=== PATIENT | male | born 1985 | race Caucasian/White ===

== ENCOUNTER 2022-10-30 07:37 | Outpatient (CLI) | payer BC, SELFPAY | END 2022-10-30 07:38 | disposition home or self-care (01) | LOC: ANHLAB 08:30 | PROVIDERS: Visit Provider Obstetrics & Gynecology Gynecology | DX: Z01.83 Encounter for blood typing (principal) | CPT/HCPCS: 36415; 86850; 86900; 86901 ==

== ENCOUNTER 2023-08-17 18:03 | Emergency (ER) | payer BC, SELFPAY ==
--- NOTE | ~2023-08-17 | US_ITS ---
EXAMINATION: US venous doppler UE RT DATE: 08/17/2023 20:15 INDICATION: LUE edema, redness . TECHNIQUE: Grayscale ultrasound images without and with compression and Doppler ultrasound images of the right upper extremity veins were obtained. COMPARISON: None. FINDINGS: The visualized portions of the right internal jugular vein, subclavian vein, axillary vein, brachial veins, basilic vein, cephalic vein, radial vein, and ulnar vein are patent. IMPRESSION: No deep venous thrombosis. Reviewed, dictated and finalized at location K. IMPRESSION: No deep venous thrombosis.
[2023-08-17 18:06] VITALS: BP 121/71; PULSE 87; RESP 18; TEMP 37.1; O2SAT 99
--- NOTE | 2023-08-17 18:44 | ED.SKABFB ---
HPI - Skin/Abscess/Foreign Bdy General Chief complaint: Skin/Abscess/Foreign Body Stated complaint: right arm cellulitis (sting?) Time Seen by Provider: 08/17/23 18:13 History of Present Illness HPI narrative: 37-year-old male presents to the emergency department for redness and pain to his right arm and redness throughout his body. Patient states a couple days ago he noticed what he thought was a bite rivas to the volar aspect of his right forearm. States the areas become red and painful. He went to urgent care today and was prescribed clindamycin. States he took 2 doses. He was advised to go to the emergency department if symptoms worsened or progressed which is why he came in today. States he later noticed more swelling and redness to his arm and also notice redness to his chest and abdomen, back and thighs. He is unsure when the redness to his torso started and thinks it may have been today or yesterday. He is unable to tell me if it was before or after starting clindamycin. He states the rash to his forearm is itchy and tender. States he felt feverish last night but denies known fever. Denies nausea or vomiting. No past medical history. Related Data Allergies Allergy/AdvReac Type Severity Reaction Status Date / Time No Known Allergies Allergy Verified 08/17/23 18:11 Review of Systems Review of Systems: CONSTITUTIONAL: see HPI EYES: Denies visual changes, redness, or discharge. ENT: Denies rhinorrhea, congestion, sore throat, or otalgia. CARDIOVASCULAR: Denies chest pain, palpitations, or edema. RESPIRATORY: Denies cough or dyspnea. GASTROINTESTINAL: Denies abdominal pain, nausea, vomiting, or diarrhea. GENITOURINARY: Denies dysuria or hematuria. SKIN: See HPI MUSCULOSKELETAL: Denies back pain, joint pain, or myalgia. NEUROLOGIC: Denies headache, numbness, or weakness. PSYCHIATRIC: Denies anxiety or depression. Exam Narrative: GENERAL: Well-appearing, well-nourished, and in no acute distress. HEAD: Normocephalic, atraumatic. EYES: PERRLA and EOMI. ENT: Nares clear, no rhinorrhea or epistaxis. Mucous membranes moist. NECK: Supple. CHEST: Clear to auscultation. No respiratory distress. HEART: Regular rate and rhythm. No murmur heard. Normal peripheral pulses. ABDOMEN: Soft, nontender, nondistended, normal active bowel sounds. EXTREMITIES: Normal range of motion. No edema. SKIN: RUE: 2cm area of purple ecchymosis to the volar aspect of the forearm with surrounding erythema, edema and warmth. Erythema and warmth travels proximally into the axilla. Chest, abdomen, back and anterior aspect of the thighs with diffuse warmth and erythema. There are patches of coalescing macules to the back. No crepitus, desquamation, or vesicles throughout. NEURO: No focal deficits. Alert and oriented x3 Course Vital Signs Vital signs: Vital Signs Temperature 98.8 F 08/17/23 18:06 Pulse Rate 87 08/17/23 18:06 Respiratory Rate 18 08/17/23 18:06 Blood Pressure 121/71 08/17/23 18:06 Pulse Oximetry 99 08/17/23 18:06 Oxygen Delivery Room Air 08/17/23 18:06 Temperature 98.8 F 08/17/23 18:06 Pulse Rate 66 08/17/23 20:00 Respiratory Rate 18 08/17/23 20:00 Blood Pressure 119/75 08/17/23 20:00 Pulse Oximetry 100 08/17/23 20:00 Oxygen Delivery Room Air 08/17/23 18:06 MDM - Skin/Abscess/Foreign Bdy MDM Narrative Medical decision making narrative: 37-year-old male presents to emergency department for concerns for bite to his right forearm a few days ago and now a red and warm rash throughout his body. Triage vital stable. Exam is significant for the above. Diffuse erythematous rash is concerning for possible drug eruption. Will treat as such and obtain basic labs and re-evaluate. CBC with leukocytosis of 12.5, no bandemia. This is consistent with patient's cellulitis to his right forearm from possible bite. His Tdap is up-to-date. Chemistries are largely unremarkable but hi
[2023-08-17] MEDS: methylPREDNISolone SOD SUCC 125 MG VIAL IV PUSH (18:56)
[2023-08-17] MEDS: diphenhydrAMINE HCl INJ 50 MG/ML VIAL 25 MG IV PUSH (18:57)
[2023-08-17] MEDS: FAMOTIDINE 20 MG/2 ML VIAL IV PUSH (18:57)
[2023-08-17 19:03] LABS: Basophils Percent Auto 0.2 % (0.2-1.2); Eosinophils Absolute Auto 0.4 K/mm3 (0-0.3); Eosinophils Percent Auto 3.5 % (0-4.4); Hematocrit 41.8 % (42.0-52.0); Hemoglobin 14.3 g/dL (14.0-18.0); Immature Granulocyte Absolute 0.04 K/mm3 (0.00-0.031); Immature Granulocyte Percent A 0.3 % (0-0.5); Lymphocytes Absolute Auto 0.69 K/mm3 (0.9-3.2); Lymphocytes Percent Auto 5.5 % (18.3-44.2); Mean Corpuscular HGB Conc 34.2 g/dl (32-36); Mean Corpuscular Hemoglobin 31.9 pg (26-34); Mean Corpuscular Volume 93.3 fl (80-100); Mean Platelet Volume 8.9 fl (7.4-10.4); Monocytes Absolute Auto 0.6 K/mm3 (0.1-0.6); Monocytes Percent Auto 4.6 % (2.6-8.5); Neutrophils Absolute Auto 10.7 K/mm3 (1.3-6.7); Neutrophils Percent Auto 85.9 % (45.5-73.1); Platelet Count Result 187 k/mm3 (150-375); Red Blood Count 4.48 M/mm3 (4.6-6.20); Red Cell Distribution Width 12.8 % (11.5-14.5); White Blood Count 12.5 K/mm3 (4.5-10.0)
[2023-08-17 19:20] LABS: Alanine Aminotransferase 19 U/L (6-50); Albumin Level 4.3 g/dL (3.5-5.1); Alkaline Phosphatase 67 U/L (38-126); Anion Gap 5 mmol/L (4-12); Aspartate Amino Transferase 35 U/L (17-59); Bilirubin,Total 2.5 mg/dL (0.2-1.3); Blood Urea Nitrogen 14 mg/dL (9-20); Calcium 8.6 mg/dL (8.4-10.2); Carbon Dioxide 30 mmol/L (22-30); Chloride 101 mmol/L (98-107); Estimated CRCL calculation 75 ml/min; Estimated Glomerular Filt Rate > 60; Glucose 121 mg/dL (65-110); Potassium 4.3 mmol/L (3.4-5.0); Sodium 136 mmol/L (137-145)
[2023-08-17 19:45] LABS: Erythrocyte Sedimentation Rate 8 mm/hr (0-20)
[2023-08-17 20:00] VITALS: BP 119/75; PULSE 66; RESP 18; O2SAT 100
[2023-08-17] MEDS: CEPHALEXIN 500 MG CAPSULE PO (21:33)
--- NOTE | 2023-08-17 21:33 | PC.NURSE ---
Pt requested to stay for 30 minutes after administration of antibiotic (Keflex) to assure he does not have a reaction to this.
== END 2023-08-17 22:16 | disposition home or self-care (01) ==
PROVIDERS: Emergency Provider Physician Assistant
DX: L03.113 Cellulitis of right upper limb (principal); L27.0 Generalized skin eruption due to drugs and medicaments taken internally; T36.8X5A Adverse effect of other systemic antibiotics, initial encounter
CPT/HCPCS: 36415; 80053; 85025; 85652; 86140; 93971; 96374; 96375; 99284; A9270; J1200; J2919